=== PATIENT | female | born 1970 | race Caucasian/White ===

== ENCOUNTER → 2018-07-24 | Outpatient (CLI) | payer BC ==
[~2018-07-24] MED LIST: FEXO180T PO; HYDR-3454 PO; LEVO500T69 PO; LVT.025T PO; PRD20T PO
--- NOTE | 2018-07-25 12:44 | Diagnostic Imaging Report ---
INDICATION: Routine screening. COMPARISON: Comparison is made with prior mammograms from 08/05/2014 and 05/04/2013. TECHNIQUE: 2D and 3D bilateral screening mammography was performed with computer-aided detection (CAD) system. FINDINGS: Both breasts remain heterogeneously dense, limiting the sensitivity of mammography. No mass or malignant appearing microcalcifications are seen. The axillae are unremarkable. IMPRESSION: No mammographic features suspicious for malignancy are identified. ACR BI-RADS Category 1: Negative. Result letter will be mailed to the patient. Note: At least 10% of breast cancer is not imaged by mammography. Dictated by: Dictated on workstation # [id number]
== END ==
LOC: RAD 15:41
PROVIDERS: ATTEND Internal Medicine
DX: Z12.31 Encounter for screening mammogram for malignant neoplasm of breast (principal)
CPT/HCPCS: 77067

== ENCOUNTER → 2020-09-30 | Outpatient (CLI) | payer BC ==
--- NOTE | 2020-10-01 06:54 | Diagnostic Imaging Report ---
INDICATION: Routine screening. Comparison is made with prior mammogram 07/24/2018 and 08/05/2014. 2-D and 3-D bilateral screening mammography was performed with CAD. Both breasts are heterogeneously dense, limiting the sensitivity of mammography. No mass or malignant appearing microcalcifications are seen. Axillae are unremarkable. IMPRESSION: BI-RADS Category 1 No mammographic features suspicious for malignancy are identified. ACR BI-RADS Category 1: Negative. Result letter will be mailed to the patient. Note: At least 10% of breast cancer is not imaged by mammography. Dictated by: Dictated on workstation # [id number]
== END ==
LOC: RAD 15:57
PROVIDERS: ATTEND Internal Medicine
DX: Z12.31 Encounter for screening mammogram for malignant neoplasm of breast (principal)
CPT/HCPCS: 77063; 77067

== ENCOUNTER 2021-08-26 17:18 | Emergency (ER) | payer BC ==
[~2021-08-26] VITALS: Ht 162 cm; Wt 70.3 kg
--- NOTE | 2021-08-26 17:54 | ED General ---
General Chief Complaint: Allergic Reaction Stated Complaint: BODY RASH Nursing Triage Note: SENT OVER FROM [facility]. STARTYED DOXY AND DECADRON ON TUESDAY FOR A SINUS INFECTION. NEXT DAY HAD AN REACTION AND WAS GIVEN A STEROID BY MORNING SHE WAS FINE. TODAY HER HANDS STARTED BURNING, WIDE SPREAD RASH, AND LIPS SWELLED. WAS GIVEN 0.5 EPI, BENADRYL 50 AND PEPCID 40. SENT HER HERE BECAUSE SHE DID NOT GET BETTER. Source of Information: Patient Exam Limitations: No Limitations (LESLIE ROBERTSON APRN) History of Present Illness Date Seen by Provider: Aug 26, 2021 Time Seen by Provider: 17:49 Initial Comments To ER from [facility]. On 08/20/2021 she was seen there for sinus infection based on nasal congestion. She had a negative Covid test. She was given steroids and doxycycline. Tuesday she developed some hives went back to [facility] and was given a shot of steroids. Tuesday morning she awakened with complete resolution of the rash. This morning she had a recurrence of the rash, itching and burning in the palms of her hands as well as swelling of her lips. No GI symptoms such as diarrhea no sores in the mouth, no wheezing or shortness of breath. No chest pain. She went back to [facility] for the symptoms at about 4:30 and was given injection of 0.5 mg of intramuscular epinephrine, 20 mg of Pepcid p.o., 50 mg of Benadryl intramuscular. She did not improve much so they referred her to the emergency room. Timing/Duration: Intermittent Severity: Moderate Associated Systoms: No Cough, No Loss of Appetite, No Malaise, No Nausea/Vomiting (LESLIE ROBERTSON APRN) Allergies and Home Medications Allergies Coded Allergies: doxycycline (Verified Allergy, Unknown, 08/26/21) amoxicillin (Unverified Adverse Reaction, Mild, N/V, 04/20/11) Patient Home Medication List Home Medication List Reviewed: Yes (LESLIE ROBERTSON APRN) Hydrocodone Bit/Acetaminophen (Vicodin 5-300 Mg Tablet) 1 Each Tablet, 1-2 EACH PO Q4H PRN for PAIN Prescribed by: MELONIE HILL on 10/02/13 1406 Levofloxacin (Levaquin 500 Mg) 500 Mg Tab, 1 EACH PO DAILY Prescribed by: MELONIE HILL on 10/02/13 1406 Levothyroxine Sodium (Synthroid) 25 Mcg Tablet, 25 MCG PO DAILY, (Reported) Entered as Reported by: SAURABH PRABHAKAR on 09/26/13 1653 Prednisone (Prednisone) 20 Mg Tab, 20 TAB PO DAILY Prescribed by: MELONIE HILL on 10/02/13 1406 Prednisone (Prednisone) 20 Mg Tab, 40 MG PO DAILY Prescribed by: LESLIE ROBERTSON on 08/26/21 1837 Review of Systems Review of Systems Constitutional: see HPI; No dizziness, No fever EENTM: see HPI Respiratory: no symptoms reported; No short of breath Cardiovascular: no symptoms reported Genitourinary: no symptoms reported Musculoskeletal: no symptoms reported Skin: see HPI Psychiatric/Neurological: No Symptoms Reported Hematologic/Lymphatic: No Symptoms Reported Immunological/Allergic: no symptoms reported (LESLIE ROBERTSON APRN) Past Rejftmf-Lqyqfr-Cfohit Hx Patient Social History Tobacco Use?: No Substance use?: No Alcohol Frequency: Rarely (LESLIE ROBERTSON APRN) Immunizations Up To Date 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 oz. 81.014305kw; 26.00 BMI Method: General Appearance: No Apparent Distress, WD/WN, Other (Heart and oriented, no distress hemodynamically stable. No palmar erythema. She has a bit of asymmetrical swelling of the lower lip. She has some flat urticarial lesions to the torso and extremities. Lungs are clear. Abdomen flat soft nontender. No mucous membrane involvement.) Eyes: Bilateral Eye Normal Inspection, Bilateral Eye PERRL, Bilateral Eye EOMI Neck: Full Range of Motion, Normal Inspection Respiratory: No Accessory Muscle Use, No Respiratory Distress Cardiovascular: Regular Rate, Rhythm, Normal Peripheral Pulses Gastrointestinal: Non Tender, Soft Neurologic/Psychiatric: Alert, Oriented x3 Skin: Normal Color, Warm/Dry, Rash (LESLIE ROBERTSON APRN) Progress/Results/Core Measures Suspected Sepsis SIRS Temperature: Pulse: 81 Respiratory Rate: 16 Laboratory Tests 08/26/21 18:00: White Blood Count 13.5H Blood Pressure 129 /86 Mean: 100 Laboratory Tests 08/26/21 18:00: Creatinine 0.81, Platelet Count 365, Total Bilirubin 0.3 (LESLIE ROBERTSON APRN) Results/Orders Lab Results Laboratory Tests Test 08/26/21 18:00 Range/Units White Blood Count 13.5 H 4.3-11.0 10^3/uL Red Blood Count 5.49 H 3.80-5.11 10^6/uL Hemoglobin 15.0 11.5-16.0 g/dL Hematocrit 47 35-52 % Mean Corpuscular Volume 85 80-99 fL Mean Corpuscular Hemoglobin 27 25-34 pg Mean Corpuscular Hemoglobin Concent 32 32-36 g/dL Red Cell Distribution Width 13.2 10.0-14.5 % Platelet Count 365 130-400 10^3/uL Mean Platelet Volume 10.1 9.0-12.2 fL Immature Granulocyte % (Auto) 4 % Neutrophils (%) (Auto) 54 42-75 % Lymphocytes (%) (Auto) 35 12-44 % Monocytes (%) (Auto) 6 0-12 % Eosinophils (%) (Auto) 1 0-10 % Basophils (%) (Auto) 1 0-10 % Neutrophils # (Auto) 7.3 1.8-7.8 10^3/uL Lymphocytes # (Auto) 4.7 H 1.0-4.0 10^3/uL Monocytes # (Auto) 0.8 0.0-1.0 10^3/uL Eosinophils # (Auto) 0.2 0.0-0.3 10^3/uL Basophils # (Auto) 0.1 0.0-0.1 10^3/uL Immature Granulocyte # (Auto) 0.5 H 0.0-0.1 10^3/uL Sodium Level 139 135-145 MMOL/L Potassium Level 4.0 3.6-5.0 MMOL/L Chloride Level 103 98-107 MMOL/L Carbon Dioxide Level 23 21-32 MMOL/L Anion Gap 13 5-14 MMOL/L Blood Urea Nitrogen 29 H 7-18 MG/DL Creatinine 0.81 0.60-1.30 MG/DL Estimat Glomerular Filtration Rate 88 BUN/Creatinine Ratio 36 Glucose Level 102 70-105 MG/DL Calcium Level 9.7 8.5-10.1 MG/DL Corrected Calcium 9.4 8.5-10.1 MG/DL Total Bilirubin 0.3 0.1-1.0 MG/DL Aspartate Amino Transf (AST/SGOT) 12 5-34 U/L Alanine Aminotransferase (ALT/SGPT) 17 0-55 U/L Alkaline Phosphatase 72 40-136 U/L Total Protein 7.3 6.4-8.2 GM/DL Albumin 4.4 3.2-4.5 GM/DL (ALVAREZ MARKS DO) Medications Given in ED Current Medications Medications Dose Ordered Sig/Martine Route Start Time Stop Time Status Last Admin Dose Admin Loratadine 10 mg ONCE ONCE PO 08/26/21 18:00 08/26/21 18:01 DC 08/26/21 18:07 10 MG Methylprednisolone Sodium Succinate 125 mg ONCE ONCE IVP 08/26/21 18:00 08/26/21 18:01 DC 08/26/21 18:02 125 MG (KENDRICKALVAREZ DO) Vital Signs/I&O 08/26/21 08/26/21 17:20 19:08 Temp 36.3 Pulse 81 83 Resp 16 18 B/P (MAP) 129/86 (100) 123/69 Pulse Ox 97 98 O2 Delivery Room Air Room Air (KENDRICKRIAZA Elena CRISTINA) Vital Signs/I&O Capillary Refill : Less Than 3 Seconds (LESLIE ROBERTSON APRN) Blood Pressure Mean: 100 Departure Communication (Admissions) 7400-her rash is lightening. There are no mucous membrane lesions or GI sympto ms. Only 1 body system involvement here being integumentary. I will put her on some oral steroids for a couple days. Her last dose of doxycycline was on Tuesday of this week, it has a half-life of about 12 hours and with the assumption of about 4-5 half-lives to clear the system should be out today or tomorrow. She is comfortable going home. (LESLIE ROBERTSON APRN) Impression Primary Impression: Urticaria Additional Impression: Allergic reaction caused by a drug Disposition: HOME, SELF-CARE Condition: Stable Departure-Patient Inst. Decision time for Depature: 17:53 (LESLIE ROBERTSON APRN) Referrals: LEEANNE CALLES DO (PCP/Family) Primary Care Physician Patient Instructions: Rabia (LEOBARDO) Add. Discharge Instructions: 1. Consider yourself allergic to tetracyclines from this point on. Take the steroids as directed. Call Dr Calles tomorrow for Follow up. Return to ER for any worsening. All discharge instructions reviewed with patient and/or family. Voiced understanding. Scripts Prednisone (Prednisone) 20 Mg Tab 40 MG PO DAILY, #6 TAB 0 Refills Prov: LESLIE ROBERTSON APRN 08/26/21 ATTENDING PHYSICIAN NOTE: I WAS PHYSICALLY PRESENT ER PHYSICIAN WHEN THIS PATIENT WAS IN ER, BUT I WAS NOT INVOLVED IN ANY DECISION MAKING OR ANY CARE OF THIS PATIENT. (ALVAREZ MARKS DO) Copy Copies To 1: LEEANNE CALLES PETER J APRN Aug 26, 2021 17:54 ALVAREZ MARKS DO Aug 26, 2021 20:22
[2021-08-26] MEDS ORDERED: LORATADINE 5 MG/5 ML SOLN (CLARITIN) UDC PO ONE (18:00)
[2021-08-26] MEDS ORDERED: methylPREDNISolone 125 MG (Solu-MEDROL) VIAL IVP ONE (18:00)
[2021-08-26 18:10] LABS: HEMATOCRIT 47 % (35-52); MEAN CORPUSCULAR VOLUME 85 fL (80-99); WHITE BLOOD COUNT 13.5 10^3/uL (4.3-11.0)
[2021-08-26 18:11] LABS: BASOPHILS # (AUTO) 0.1 10^3/uL (0.0-0.1); BASOPHILS % (AUTO) 1 % (0-10); EOSINOPHILS # (AUTO) 0.2 10^3/uL (0.0-0.3); EOSINOPHILS % (AUTO) 1 % (0-10); LYMPHOCYTES # (AUTO) 4.7 10^3/uL (1.0-4.0); LYMPHOCYTES % (AUTO) 35 % (12-44); MEAN CORPUSCULAR HEMOGLOBIN 27 pg (25-34); MEAN CORPUSCULAR HGB CONC 32 g/dL (32-36); MEAN PLATELET VOLUME 10.1 fL (9.0-12.2); MONOCYTES # (AUTO) 0.8 10^3/uL (0.0-1.0); MONOCYTES % (AUTO) 6 % (0-12); NEUTROPHILS # (AUTO) 7.3 10^3/uL (1.8-7.8); NEUTROPHILS % (AUTO) 54 % (42-75); PLATELET COUNT 365 10^3/uL (130-400)
[2021-08-26 18:23] LABS: ALBUMIN 4.4 GM/DL (3.2-4.5)
[2021-08-26 18:24] LABS: CALCIUM 9.7 MG/DL (8.5-10.1)
[2021-08-26 18:25] LABS: TOTAL PROTEIN 7.3 GM/DL (6.4-8.2)
[2021-08-26 18:27] LABS: BILIRUBIN,TOTAL 0.3 MG/DL (0.1-1.0)
[2021-08-26 18:29] LABS: CREATININE SERUM 0.81 MG/DL (0.60-1.30)
[2021-08-26] MEDS ORDERED: PRD20T PO (18:37)
[2021-08-26 19:08] VITALS: BP 123/69
== END 2021-08-26 19:08 | disposition home or self-care (01) ==
LOC: EDUNIT# 17:18 → ER 17:19
DX: L50.9 Urticaria, unspecified (principal); T38.0X5A Adverse effect of glucocorticoids and synthetic analogues, initial encounter
CPT/HCPCS: 36415; 80053; 85025

== ENCOUNTER → 2021-10-30 | Outpatient (CLI) | payer BC ==
--- NOTE | 2021-10-30 14:07 | Diagnostic Imaging Report ---
INDICATION: Routine screening. COMPARISON is made with prior mammograms from 09/30/2020 and 07/24/2018. 2-D and 3-D bilateral screening mammography was performed with CAD. Both breasts are heterogeneously dense, limiting the sensitivity of mammography. The parenchymal pattern is stable. No mass or malignant-appearing microcalcifications are seen. Axillae are unremarkable. IMPRESSION: BI-RADS Category 1 No mammographic features suspicious for malignancy are identified. ACR BI-RADS Category 1: Negative. Result letter will be mailed to the patient. Note: At least 10% of breast cancer is not imaged by mammography. Dictated by: Dictated on workstation # [id number]
== END ==
LOC: RAD 10:00
PROVIDERS: ATTEND Internal Medicine
DX: Z12.31 Encounter for screening mammogram for malignant neoplasm of breast (principal)
CPT/HCPCS: 77063; 77067

== ENCOUNTER → 2022-03-04 | Outpatient (CLI) | payer BC ==
--- NOTE | 2022-03-04 17:07 | Diagnostic Imaging Report ---
PROCEDURE: US Non-OB pelvis comp/trans. TECHNIQUE: Multiple realtime grayscale images were obtained of the pelvis in various projections endovaginally. Transabdominal imaging was also performed. INDICATION: Postmenopausal bleeding. COMPARISON: None available. FINDINGS: The uterus measures 7.2 x 3.7 x 4.4 cm. The myometrium is normal in echogenicity without discrete mass. The endometrium measures up to 0.3 where visualized, and is normal in echogenicity. Small nabothian gland cyst is mildly complicated. The ovaries are not seen by transabdominal or transvaginal imaging due to surrounding bowel gas. No concerning adnexal mass is appreciated. No free pelvic fluid. IMPRESSION: 1. Ovaries cannot be identified due to surrounding bowel gas. 2. No endometrial thickening. 3. Mildly complicated nabothian gland cyst. Dictated by: Dictated on workstation # [id number]
== END ==
LOC: RAD 15:15
PROVIDERS: ATTEND Surgery
DX: N88.8 Other specified noninflammatory disorders of cervix uteri (principal); N95.0 Postmenopausal bleeding
CPT/HCPCS: 76830; 76856